=== PATIENT | female | born 1995 | race Caucasian/White ===

== ENCOUNTER 2017-08-26 08:11 | Emergency (ER) | payer OTHER ==
[~2017-08-26] VITALS: Ht 162.6 cm; Wt 60.8 kg
[2017-08-26 08:33] LABS: Source, Urine Clean Catch
[2017-08-26 08:40] LABS: Bilirubin, Urine Neg (Neg); Blood, Urine Neg (Neg); Glucose Qualitative, Urine Neg (Neg); Ketones, Urine Neg (Neg); Leukocyte Esterase, Urine 1+ (Neg); Nitrite, Urine Neg (Neg); Protein, Urine Neg (Neg); Specific Gravity, Urine 1.015 (1.003-1.022); Urobilinogen, Urine NORM (Normal)
[2017-08-26 08:52] LABS: Appearance, Urine Hazy (Clear); Color, Urine Yellow (P-Yellow)
[2017-08-26 08:53] LABS: Bacteria Many /hpf; Red Blood Cells, Urine 0-2 /hpf (0-2); Squamous Epithelial Cells Few /hpf (Few)
== END 2017-08-26 10:32 | disposition home or self-care (01) ==
LOC: ER 08:11
PROVIDERS: Physician Assistant
DX: O99.89 Other specified diseases and conditions complicating pregnancy, childbirth and the puerperium (principal); R10.12 Left upper quadrant pain
CPT/HCPCS: 36415; 81001; 81025; 84702; 86900; 86901; 87086; 99283

== ENCOUNTER 2017-12-05 08:33 | Emergency (ER) | payer OTHER ==
[~2017-12-05] VITALS: Ht 160 cm; Wt 62.1 kg
[2017-12-05] MEDS ORDERED: Verotin-Gr Cap1 EACH PO (10:37)
[2017-12-05 10:44] LABS: BASOPHILS ABSOLUTE AUTO 0.03 K/mm3 (0.00-0.23); BASOPHILS PERCENT AUTO 0 % (0-2); EOSINOPHILS ABSOLUTE AUTO 0.04 K/mm3 (0.00-0.68); EOSINOPHILS PERCENT AUTO 0 % (0-6); Hematocrit 35.1 % (33.0-51.0); Hemoglobin 12.7 g/dL (11.5-16.0); IMMATURE GRAN ABSOLUTE AUTO 0.06 K/mm3 (0.00-0.10); IMMATURE GRAN PERCENT AUTO 1 % (0-1); LYMPHOCYTES ABSOLUTE AUTO 1.88 K/mm3 (0.84-5.20); LYMPHOCYTES PERCENT AUTO 19 % (21-46); MONOCYTES ABSOLUTE AUTO 0.46 K/mm3 (0.16-1.47); MONOCYTES PERCENT AUTO 5 % (4-13); Mean Corpuscular HGB 33.5 pg (26.0-34.0); Mean Corpuscular HGB Conc 36.2 g/dL (31.5-36.5); Mean Corpuscular Volume 93 fL (80-100); Mean Platelet Volume 9.6 fL (9.1-12.4); NEUTROPHILS PERCENT AUTO 75 % (41-73); Platelet Count 232 K/mm3 (150-400); RDW Coefficient Variation 12.3 % (11.7-14.2); RDW Standard Deviation 41.5 fL (35.1-46.3); Red Blood Cell Count 3.79 M/mm3 (3.80-5.20); White Blood Cell Count 9.77 K/mm3 (4.00-11.30)
[2017-12-05 11:03] LABS: Source, Urine Clean Catch
[2017-12-05 11:07] LABS: Alanine Aminotransfer (ALT/SGP 25 U/L (12-78); Albumin/Globulin Ratio 0.8 (0.8-1.8); Alk Phos 73 U/L (50-136); Anion Gap 8 mmol/L (6-16); Aspartate Aminotrans (AST/SGOT 9 U/L (12-37); Bilirubin, Total 0.3 mg/dL (0.1-1.0); Blood Urea Nitrogen 9 mg/dL (8-24); CO2, Blood 25 mmol/L (21-32); Calcium, Blood 8.6 mg/dL (8.5-10.1); Chloride, Blood 105 mmol/L (98-108); Globulin, Blood 3.9 g/dL (2.2-4.0); Glomerular Filtration Rate >60 (60-); Glucose, Blood 70 mg/dL (70-99); Potassium, Blood 3.7 mmol/L (3.5-5.5); Sodium, Blood 138 mmol/L (136-145); Total Protein, Blood 6.9 g/dL (6.4-8.2)
[2017-12-05 11:11] LABS: Bilirubin, Urine Neg (Neg); Blood, Urine Neg (Neg); Glucose Qualitative, Urine Neg (Neg); Ketones, Urine Neg (Neg); Leukocyte Esterase, Urine 1+ (Neg); Nitrite, Urine Neg (Neg); Protein, Urine Neg (Neg); Specific Gravity, Urine 1.015 (1.003-1.022); Urobilinogen, Urine NORM (Normal); pH, Urine 6.5 (5.0-8.0)
[2017-12-05 11:17] LABS: Appearance, Urine Clear (Clear); Color, Urine Yellow (P-Yellow)
[2017-12-05 11:18] LABS: Bacteria Many /hpf; Red Blood Cells, Urine 0-2 /hpf (0-2); Squamous Epithelial Cells Many /hpf (Few); White Blood Cells, Urine 0-2 /hpf (0-5)
[2017-12-05 11:34] LABS: Beta HCG, Quantitative, Serum 6822 mIU/mL (0-3)
== END 2017-12-05 10:52 | disposition left against medical advice (07) ==
LOC: ER 08:33
PROVIDERS: Emergency Medicine; Physician Assistant
DX: O20.9 Hemorrhage in early pregnancy, unspecified (principal); O99.89 Other specified diseases and conditions complicating pregnancy, childbirth and the puerperium; R10.30 Lower abdominal pain, unspecified; Z79.899 Other long term (current) drug therapy; Z3A.19 19 weeks gestation of pregnancy
CPT/HCPCS: 36415; 76815; 80053; 81001; 84702; 85025; 86900; 86901; 87086; 99284

== ENCOUNTER → 2021-07-31 | Outpatient (CLI) | payer OTHER ==
[~2021-07-31] MED LIST: Verotin-Gr Cap1 EACH PO
== END | disposition home or self-care (01) ==
LOC: LAB SHORT 16:54 → LAB 16:54
DX: N39.0 Urinary tract infection, site not specified (principal)
CPT/HCPCS: 87086

== ENCOUNTER 2022-02-01 12:59 | Emergency (ER) | payer OTHER ==
[~2022-02-01] VITALS: Ht 165.1 cm; Wt 63.5 kg
== END 2022-02-01 16:05 | disposition home or self-care (01) ==
LOC: ER 12:59
DX: N63.25 Unspecified lump in the left breast, overlapping quadrants (principal); R22.2 Localized swelling, mass and lump, trunk; N64.4 Mastodynia
CPT/HCPCS: 76604; 99283-25

== ENCOUNTER → 2022-10-22 | Outpatient (CLI) | payer OTHER ==
[2022-10-22 19:31] LABS: BASOPHILS ABSOLUTE AUTO 0.04 K/mm3 (0.00-0.23); BASOPHILS PERCENT AUTO 0 % (0-2); EOSINOPHILS ABSOLUTE AUTO 0.09 K/mm3 (0.00-0.68); EOSINOPHILS PERCENT AUTO 1 % (0-6); Hematocrit 40.8 % (33.0-51.0); Hemoglobin 14.8 g/dL (11.5-16.0); IMMATURE GRAN ABSOLUTE AUTO 0.02 K/mm3 (0.00-0.10); IMMATURE GRAN PERCENT AUTO 0 % (0-1); LYMPHOCYTES ABSOLUTE AUTO 2.32 K/mm3 (0.84-5.20); LYMPHOCYTES PERCENT AUTO 25 % (21-46); MONOCYTES PERCENT AUTO 6 % (4-13); Mean Corpuscular HGB 32.3 pg (26.0-34.0); Mean Corpuscular HGB Conc 36.3 g/dL (31.5-36.5); Mean Corpuscular Volume 89 fL (80-100); Mean Platelet Volume 9.8 fL (9.1-12.4); NEUTROPHILS PERCENT AUTO 67 % (41-73); Platelet Count 270 K/mm3 (150-400); RDW Coefficient Variation 11.6 % (11.7-14.2); RDW Standard Deviation 36.7 fL (35.1-46.3); Red Blood Cell Count 4.58 M/mm3 (3.80-5.20); White Blood Cell Count 9.37 K/mm3 (4.00-11.30)
[2022-10-22 20:02] LABS: Alanine Aminotransfer (ALT/SGP 33 U/L (12-78); Albumin, Blood 3.9 g/dL (3.4-5.0); Albumin/Globulin Ratio 0.9 (0.8-1.8); Alk Phos 71 U/L (50-136); Anion Gap 5 mmol/L (6-16); Aspartate Aminotrans (AST/SGOT 21 U/L (12-37); Bilirubin, Total 0.6 mg/dL (0.1-1.0); Blood Urea Nitrogen 22 mg/dL (8-24); Bun/Creatinine Ratio 32.9 (12.0-20.0); CHOL/HDL RATIO 3.1; CO2, Blood 24 mmol/L (21-32); Calcium, Blood 9.3 mg/dL (8.5-10.1); Chloride, Blood 107 mmol/L (98-108); Cholesterol 150 mg/dL (50-200); Creatinine, Blood 0.67 mg/dL (0.40-1.00); Free Thyroxine 1.08 ng/dL (0.70-1.60); Globulin, Blood 4.4 g/dL (2.2-4.0); Glomerular Filtration Rate 123 (60-); Glucose, Blood 84 mg/dL (70-99); HDL Cholesterol 49 mg/dL (>39); LDL/HDL RATIO 1.5; Low Density Lipoprotein Chol 75 mg/dL (0-110); Potassium, Blood 4.3 mmol/L (3.5-5.5); Sodium, Blood 136 mmol/L (136-145); Total Protein, Blood 8.3 g/dL (6.4-8.2); Triglycerides 130 mg/dL (30-140); Very Low Density Lipoprot Chol 26 mg/dL (6-28)
== END | disposition home or self-care (01) ==
LOC: LAB 18:41 → LAB SHORT 18:41
PROVIDERS: Family Medicine
DX: Z51.81 Encounter for therapeutic drug level monitoring (principal); Z79.899 Other long term (current) drug therapy
CPT/HCPCS: 80053; 80061; 84439; 84443; 85025

== ENCOUNTER 2022-10-26 17:17 | Emergency (ER) | payer OTHER ==
[~2022-10-26] VITALS: Ht 165.1 cm; Wt 65.8 kg
== END 2022-10-26 23:33 | disposition home or self-care (01) ==
LOC: ER 17:17
DX: R07.9 Chest pain, unspecified (principal); R05.9 Cough, unspecified
CPT/HCPCS: 36415; 71046; 85379; 93005; 93010; 99284-25

== ENCOUNTER → 2022-11-05 | Outpatient (CLI) | payer OTHER | END | disposition home or self-care (01) | LOC: LAB 19:08 → LAB SHORT 19:08 | PROVIDERS: Family Medicine | DX: M25.50 Pain in unspecified joint (principal) | CPT/HCPCS: 85651; 86140 ==

== ENCOUNTER → 2023-02-04 | Outpatient (CLI) | payer OTHER ==
[2023-02-07 14:08] LABS: IMMUNOGLOBULIN A, QN, SERUM 358 mg/dL (87-352); T-TRANSGLUTAMINASE (TTG) IGA 2 U/mL (0-3); T-TRANSGLUTAMINASE (TTG) IGG 13 U/mL (0-5)
== END ==
LOC: LAB SHORT 11:11 → LAB 11:11
PROVIDERS: Family Medicine
DX: M25.50 Pain in unspecified joint (principal); K90.0 Celiac disease
CPT/HCPCS: 85651; 86140

== ENCOUNTER → 2023-03-01 | Outpatient (CLI) | payer OTHER ==
[2023-03-03 20:06] LABS: HEMOGLOBIN A1C 4.6 % (4.8-5.6)
[2023-03-05 15:10] LABS: F001-IGE EGG WHITE 0.13 kU/L (Class 0/I); F002-IGE MILK <0.10 kU/L (Class 0); F003-IGE CODFISH <0.10 kU/L (Class 0); F004-IGE WHEAT <0.10 kU/L (Class 0); F005-IGE RYE <0.10 kU/L (Class 0); F006-IGE BARLEY <0.10 kU/L (Class 0); F007-IGE OAT <0.10 kU/L (Class 0); F009-IGE RICE <0.10 kU/L (Class 0); F010-IGE SESAME SEED <0.10 kU/L (Class 0); F012-IGE GREEN PEA <0.10 kU/L (Class 0); F013-IGE PEANUT <0.10 kU/L (Class 0); F014-IGE SOYBEAN <0.10 kU/L (Class 0); F015-IGE WHITE BEAN <0.10 kU/L (Class 0); F017-IGE HAZELNUT (FILBERT) <0.10 kU/L (Class 0); F020-IGE ALMOND <0.10 kU/L (Class 0); F024-IGE SHRIMP <0.10 kU/L (Class 0); F025-IGE TOMATO <0.10 kU/L (Class 0); F026-IGE PORK <0.10 kU/L (Class 0); F033-IGE ORANGE <0.10 kU/L (Class 0); F035-IGE POTATO, WHITE <0.10 kU/L (Class 0); F044-IGE STRAWBERRY <0.10 kU/L (Class 0); F045-IGE YEAST <0.10 kU/L (Class 0); F049-IGE APPLE <0.10 kU/L (Class 0); F083-IGE CHICKEN <0.10 kU/L (Class 0); F092-IGE BANANA <0.10 kU/L (Class 0); F093-IGE CHOCOLATE/CACAO <0.10 kU/L (Class 0); F202-IGE CASHEW NUT <0.10 kU/L (Class 0); F256-IGE WALNUT <0.10 kU/L (Class 0); F338-IGE SCALLOP <0.10 kU/L (Class 0)
[2023-03-08 10:11] LABS: FREE INSULIN 7.3 uU/mL (.); TOTAL INSULIN 7.3 uU/mL (.)
== END ==
LOC: LAB SHORT 14:50 → LAB 14:50
PROVIDERS: Family Medicine
DX: T78.1XXA Other adverse food reactions, not elsewhere classified, initial encounter (principal); R73.9 Hyperglycemia, unspecified
CPT/HCPCS: 83036; 83525; 83527; 85651; 86003; 86140

== ENCOUNTER → 2024-11-26 | Outpatient (CLI) | payer OTHER | LOC: LAB 07:31 → LAB SHORT 07:31 | DX: D48.5 Neoplasm of uncertain behavior of skin (principal); R23.4 Changes in skin texture | CPT/HCPCS: 88305; 88312 ==

== ENCOUNTER → 2025-01-03 | Outpatient (CLI) | payer OTHER | LOC: LAB 16:49 → LAB SHORT 16:49 | DX: Z01.89 Encounter for other specified special examinations (principal); Z83.49 Family history of other endocrine, nutritional and metabolic diseases ==